=== PATIENT | female | born 1970 | race Caucasian/White ===

== ENCOUNTER 2017-09-29 05:22 | Day surgery (SDC) | payer OTHER ==
[~2017-09-29] VITALS: Ht 162.6 cm; Wt 122.0 kg
[~2017-09-29 05:22] MED LIST: ASPIR-LOW81 MG PO; ENDOMETRIN100 MG VG; ESTRACE2 MG PO; FLONASE16 G1 BOTH NARES; FLOVENT DISKUS1 DIS1 IH; IRON18 MG PO; NORVASC10 MG PO; PRAVACHOL40 MG PO; PRENATAL1 EACH PO; PROGESTERONE50 MG/ML IM; SINGULAIR10 MG PO; SYNTHROID150 MCG PO; VERAPAMIL HCL240 MG PO; VIVELLE-DOT1 EAC1 TD; XYZAL5 MG PO
[2017-09-29 05:49] VITALS: BP 160/97
[2017-09-29 09:30] VITALS: BP 165/69
[2017-09-29 10:30] VITALS: BP 137/69
[2017-09-29 11:07] VITALS: BP 149/73
== END 2017-09-29 11:14 | disposition home or self-care (01) ==
LOC: CANPRESDC → SDC 05:22
PROC: 0CTPXZZ Resection of Tonsils, External Approach (ICD-10-PCS; principal; 2017-09-29)
DX: J35.01 Chronic tonsillitis (principal); I10 Essential (primary) hypertension; I48.91 Unspecified atrial fibrillation; J45.909 Unspecified asthma, uncomplicated; E03.9 Hypothyroidism, unspecified; E66.9 Obesity, unspecified; Z68.41 Body mass index [BMI] 40.0-44.9, adult; Z79.82 Long term (current) use of aspirin; Z82.49 Family history of ischemic heart disease and other diseases of the circulatory system; Z80.1 Family history of malignant neoplasm of trachea, bronchus and lung; Z81.1 Family history of alcohol abuse and dependence
CPT/HCPCS: 88304; 93005; J0330; J1100; J1170; J2250; J2405; J3010